=== PATIENT | female | born 1950 | race Caucasian/White ===

== ENCOUNTER 2021-05-03 06:13 | Observation (INO) ==
--- NOTE | 2021-04-06 17:43 | History & Physical Report ---
Date of Service April 06, 2021 date of surgery: 05/03/21 Procedure: Right Total Knee Arthroplasty Assessment & Plan (1) Arthritis of right knee: Risks and benefits of procedure discussed in detail today, patient would like to proceed with a Right total knee replacement at [facility] as scheduled. will obtain medical clearance from Dr Romero prior to surgery as well as obtain PATs at [facility]. Will resume her Plavix and ASA post op, f/u 2 weeks post op for routine post-operative care and x-ray, sooner if having any problems. will make arrangements for HHPT at the time of discharge. At this point in time, has failed conservative measures and would like to proceed with surgical intervention. she was originally scheduled to have this done last year but had to be postponed as she underwent cardiac cath and stent, she has since been seen and evaluated by cardiology and cleared to have her knee replacement. The risks and benefits have been discussed including, but not limited to, risk of infection, nerve injury, stiffness, loss of motion, failure to improve, etc. Reasonable outcomes and options of treatment were discussed. An explanation of appropriate alternatives to the procedure that may be advantageous were discussed and their risks and benefits, as well as the risks and benefits of not proceeding with treatment. I offered to answer any additional inquiries concerning the treatment involved. All the patient's questions were answered. The patient is agreeable, understanding of the treatment plan and alternatives, and wishes to proceed with the treatment plan. History of Present Illness Chief Complaint: Right knee pain Primary Care Provider: Jarred Romero Ms Degroot is a 70 year old female, presents for pre-op prior to a right total knee replacement at [facility]. She presents with pain and instability on the right side. She states that the symptoms have been chronic non-traumatic and states that the symptoms are moderate-severe. she describes the pain as sharp as aching. the symptoms are aggravated by ascending stairs, daily activities, driving, exercise, first steps while awake, kneeling, movement, repetitive activities, sleeping on the affected side, squatting, standing, walking and weight bearing. In addition to right knee pain the patient is also experiencing limping, nighttime awakening, pain, decreased mobility, difficulty bending, difficulty going to sleep, stiffness, tenderness and weakness. she has had prior visco injections, Supartz as well as cortisone without much relief. Allergies Allergy/AdvReac Type Severity Reaction Status Date / Time carvedilol [From Coreg] Allergy Mild cant Verified 04/05/21 16:16 remember fluorouracil Allergy Mild topical - Verified 04/05/21 16:16 cant remember metronidazole Allergy Mild cant Verified 04/05/21 16:16 remember moxifloxacin Allergy Mild cant Verified 04/05/21 16:16 remember doxycycline Allergy Unknown HEART Verified 04/05/21 16:13 PAUSES AND GET COLD erythromycin base Allergy Unknown HEART Verified 04/05/21 16:13 PAUSES AND GETS COLD Ageynbp-Hxd-Zdx Reductase Allergy Unknown MUSCLE Verified 04/05/21 16:13 Inhibitor ACHES, ELEVATED BP Home Medications Medication Instructions Recorded Confirmed Type cholecalciferol (vitamin D3) 125 mcg PO QAM 04/05/20 04/05/21 History [Vitamin D3] cyanocobalamin (vitamin B-12) 1,000 mcg PO QAM 04/05/20 04/05/21 History fluticasone propionate [Flonase 1 spray INTRANASAL DAILY PRN 04/05/20 04/05/21 History Allergy Relief] levothyroxine 88 mcg PO QAM 04/05/20 04/05/21 History multivitamin 1 tab PO QAM 04/05/20 04/05/21 History spironolactone [Aldactone] 25 mg PO BID 04/05/20 04/05/21 History aspirin 81 mg PO QAM 04/05/21 04/05/21 History atorvastatin 40 mg PO HS 04/05/21 04/05/21 History clopidogrel [Plavix] 75 mg PO QAM 04/05/21 04/05/21 History coenzyme Q10 [Co Q-10] 200 mg PO HS 04/05/21 04/05/21 History Past Med/Surg History Medical History Hypertension Hypothyroidism Morbid obesity Osteoarthritis Surgical History H/O parathyroidectomy History of bilateral tubal ligation History of cardiac cath 04/2020 stent placed [facility] arolod - dr santana History of cholecystectomy History of colonoscopy History of partial adrenalectomy LEFT SIDE-F/U DR SARAH ROCHE, for hyperaldosteronism and nodule History of tonsillectomy History of total knee replacement LEFT Nausea and vomiting after administration of anesthetic agent Family History Mother Family history of reaction to anesthesia PONV Daughter Family history of reaction to anesthesia PONV Daughter Family history of reaction to anesthesia PONV Grandmother (Maternal) Family history of diabetes mellitus Social History Smoking Status: Never smoker Second Hand Exposure: No; Do You Dip or Chew Tobacco: No; Tobacco Cessation Education Requested by Patient: No Hx Alcohol Use: Yes Alcohol type: wine Hx Substance Use: No Preferred Language: Senegalese Communication Ability: Effective Medical Aides Teacher Required: No Beliefs That Will Affect Care: None Current Living Situation: Spouse Other Information That Helps Us Care for You: No Feels Safe at Home: Yes Safety Concerns: Feels Safe At This Time Review of Systems Review of Systems: All systems reviewed & are unremarkable except as noted in HPI & below Constitutional: no fever, no chills and no sweats Respiratory: no cough and no dyspnea Cardiovascular: no chest pain, no dyspnea and no orthopnea Gastrointestinal: no abdominal pain, no nausea and no vomiting Musculoskeletal: as per Subjective / HPI Physical Exam Physical Exam: HT: 5ft 3in WT: 87.997kg Constitutional: WD/WN, vitals as above no acute distress Respiratory: normal respiratory effort, lungs clear to auscultation no respiratory distress, no labored breathing and does not use accessory muscles Cardiovascular: RRR, no murmur, no edema Gastrointestinal (Abdomen): normal bowel sounds, soft, nontender, no hepatosplenomegaly Musculoskeletal: Knee: + knee abnormal to inspection (Right knee: ), + effusion (+1 effusion), + limited ROM of knee (ROM 0/3/110), + knee ROM with crepitation, + joint line tenderness (medial joint line) and + Anna's sign positive; no deformity, no skin erythema, no ecchymosis, no valgus laxity, no varus laxity, anterior drawer test negative, Jessica's sign negative and pivot shift test negative Results & Data Results & Data ([facility]) Diagnostic Findings Right Knee X-ray March 2020 showing advanced degenerative changes to the right knee, narrowing of the medial compartment and patello-femoral joint with patellar spurring noted, findings showing joint space narrowing of the medial compartment and patello-femoral joint, osteophyte formation and subchondral sclerosis noted. overall varus alignment. no acute bony pathology noted.
--- NOTE | 2021-04-07 10:15 | PAT Medication Instructions ---
Medication Instructions Date of Service April 07, 2021 Home Medications cholecalciferol (vitamin D3) [Vitamin D3] 125 mcg PO QAM cyanocobalamin (vitamin B-12) 1,000 mcg PO QAM fluticasone propionate [Flonase Allergy Relief] 1 spray INTRANASAL DAILY PRN levothyroxine 88 mcg PO QAM multivitamin 1 tab PO QAM spironolactone [Aldactone] 25 mg PO BID aspirin 81 mg PO QAM atorvastatin 40 mg PO HS clopidogrel [Plavix] 75 mg PO QAM coenzyme Q10 [Co Q-10] 200 mg PO HS ASK your prescriber and surgeon clopidogrel [Plavix] 75 mg PO QAM Your [employer] has approved you to hold this medication for 5-7 days. For spinal anesthesia, this must be held for at least 7 days. Last dose will be 04/25/21. STOP taking 2 weeks before surgery coenzyme Q10 [Co Q-10] 200 mg PO HS DO NOT take the morning of surgery cholecalciferol (vitamin D3) [Vitamin D3] 125 mcg PO QAM cyanocobalamin (vitamin B-12) 1,000 mcg PO QAM multivitamin 1 tab PO QAM spironolactone [Aldactone] 25 mg PO BID Take morning of surgery With a small sip of water, OTHERWISE NOTHING TO EAT OR DRINK AFTER MIDNIGHT: fluticasone propionate [Flonase Allergy Relief] 1 spray INTRANASAL DAILY PRN (if needed) levothyroxine 88 mcg PO QAM aspirin 81 mg PO QAM Take evening before surgery fluticasone propionate [Flonase Allergy Relief] 1 spray INTRANASAL DAILY PRN (if needed) spironolactone [Aldactone] 25 mg PO BID atorvastatin 40 mg PO HS Other Notes If you have any questions please call us at [phone] or [phone] or [phone] or [phone]
--- NOTE | 2021-04-12 13:14 | Anesthesiology Consultation ---
Date of Service April 12, 2021 Assessment & Plan (1) Encounter for pre-operative examination: Chart Review Chart Review: Acceptable Risk for Surgery (pending preop Covid testing results ) and Patient seen in Pre Admission Testing Pt hesitant re: spinal anesthesia- educated on benefits/risks- pt will discuss with anesthesiologist DOS Per PAT appt on 04/12/21, patient denies any recent travel or large group activities. No known Covid positive contacts or Covid related symptoms. No known Covid infection in the past 90 days. Preop Covid testing scheduled 04/29/21= will await results. Educated on importance of self quarantining, social distancing and wearing mask in public both for the patient after Covid testing done First Covid vaccine 04/05/21 Patient seen by cardiology 03/15/2021 = patient seen for follow-up on coronary disease. Cardiac catheterization 04/30/2020 = distal LM 20%, proximal LAD 99%, mid RCA 30%PCI to proximal LADDES. (Done secondary to abnormal nuclear stress test on 04/20/20. CADstable. No anginal symptoms. Continue aspirin and Plavixdual antiplatelet therapy will be continued indefinitely as long as she continues to tolerate it given the proximal LAD stent. Continue statin. " She would like to proceed with the operation. At this point, it is reasonable to hold the clopidogrel for 5-7 days prior to the operation and then resume it as soon as possible after the operation. I would prefer that her aspirin not be held for the operation of possible given her proximal LAD stent. She is otherwise stable from a cardiac standpoint may proceed." (Did encourage patient to hold Plavix 7 days prior to surgery in order to receive spinal anesthesia; patient encouraged to continue baby aspirin perioperatively) Teaching & Discussion Pre-Anesthesia Teaching/Discussion Notes: Instructed NPO after midnight before surgery,except medications with 15 cc of water. Medication instructions provided according to the PAT guidelines. History Surgery Operation Date: 05/03/21 12:45 Proposed Procedures p Right Total Knee Arthroplasty - Chandan Joseph DO Height/Weight Height: 5 ft 3 in Weight: 91.6 kg Allergies Allergy/AdvReac Type Severity Reaction Status Date / Time carvedilol [From Coreg] Allergy Mild cant Verified 04/05/21 16:16 remember fluorouracil Allergy Mild topical - Verified 04/05/21 16:16 cant remember metronidazole Allergy Mild cant Verified 04/05/21 16:16 remember moxifloxacin Allergy Mild cant Verified 04/05/21 16:16 remember doxycycline Allergy Unknown BRADYCARDIA Verified 04/12/21 13:16 AND GET COLD erythromycin base Allergy Unknown BRADYCARDIA Verified 04/12/21 13:16 AND GETS COLD Lypvong-Qwz-Vbo Reductase Allergy Unknown MUSCLE Verified 04/05/21 16:13 Inhibitor ACHES, ELEVATED BP Medications Home Medications Medication Instructions Recorded Confirmed Last Taken cholecalciferol (vitamin D3) 125 mcg PO QAM 04/05/20 04/05/21 Unknown [Vitamin D3] cyanocobalamin (vitamin B-12) 1,000 mcg PO QAM 04/05/20 04/05/21 Unknown fluticasone propionate [Flonase 1 spray INTRANASAL DAILY PRN 04/05/20 04/05/21 Unknown Allergy Relief] levothyroxine 88 mcg PO QAM 04/05/20 04/05/21 Unknown multivitamin 1 tab PO QAM 04/05/20 04/05/21 Unknown spironolactone [Aldactone] 25 mg PO BID 04/05/20 04/05/21 Unknown aspirin 81 mg PO QAM 04/05/21 04/05/21 Unknown atorvastatin 40 mg PO HS 04/05/21 04/05/21 Unknown clopidogrel [Plavix] 75 mg PO QAM 04/05/21 04/05/21 Unknown coenzyme Q10 [Co Q-10] 200 mg PO HS 04/05/21 04/05/21 Unknown Past Medical History Medical History (Updated 04/14/21 @ 12:49 by Shelbie Quezada PA-C) CAD (coronary artery disease) 04/30/20- to proximal LAD Hyperaldosteronism History of- improved with adrenal gland removal Hyperparathyroidism S/p two parathyroid glands removal Hypertension Hypothyroidism Osteoarthritis Exercise / Class Metabolic Activity II 4-5 Yardwork/Stairs/Walk up hill (one flight of stairs - no chest pain or SOB ) Past Family History Family History Mother Family history of reaction to anesthesia PONV Daughter Family history of reaction to anesthesia PONV Daughter Family history of reaction to anesthesia PONV Grandmother (Maternal) Family history of diabetes mellitus Past Surgical History Surgical History H/O parathyroidectomy History of bilateral tubal ligation History of cardiac cath 04/2020 stent placed [facility] aroldo - dr santana History of cholecystectomy History of colonoscopy History of partial adrenalectomy LEFT SIDE-F/U DR SARAH ROCHE, for hyperaldosteronism and nodule History of tonsillectomy History of total knee replacement LEFT Nausea and vomiting after administration of anesthetic agent Past Anesthesia History No Hx of Anesthesia Complications (with exception PONV and slow to wake - no reintubation or ICU stay ) and No Family Hx of Anesthesia Complications (with exception to mother and daughter- slow to wake - no reintubation or ICU stay ) History of PONV History of PONV (relieved with IV anti nausea meds ) and Hx of Motion Sickness Social History Smoking Status: Never smoker Do You Dip or Chew Tobacco: No Hx Alcohol Use: Yes Alcohol type: wine alcohol intake frequency: a few times a month Hx Substance Use: No substance use type: does not use Review of Systems Patient denies chest pain, shortness of breath, dyspnea on exertion, reflux, cough, wheezing, palpitations. No hx of seizures, stroke, apnea/snoring. No hx of blood clots or blood transfusions Physical Exam Vital Signs VITALS BP 154/86 P 66 TEMP 97.5 SP02 97% RESP 16 Constitutional no acute distress ENMT Mouth: no TMJ clicking Thyromental Distance: > or= 3.5 Finger Breadths (3.5) Mallampati Class: II Permanent bridge to lower left teeth Neck + limited neck extension (mild ) Respiratory normal respiratory effort; no respiratory distress Auscultation: lungs clear to auscultation bilaterally; no wheezes Cardiovascular Rate/Rhythm: regular rate and regular rhythm Heart Sounds: no murmur Vessels: no carotid bruit Musculoskeletal Spine: + pain with cervical ROM (mild) Extremities: extremities normal to inspection Psychiatric Orientation: alert Lab Results Anesthesia Preop Results Results Anesthesia Widget: WBC 5.34 K/uL (4.8-10.8) 04/12/21 Hgb 13.9 g/dL (12.0-16.0) 04/12/21 Hct 41.8 % (37-47) 04/12/21 Plt 226 K/uL (130-400) 04/12/21 Na 137 mmol/L (136-145) 04/12/21 K 4.0 mmol/L (3.5-5.1) 04/12/21 Cl 104 mmol/L (98-107) 04/12/21 CO2 27 mmol/L (21-32) 04/12/21 BUN 18 mg/dl (7-18) 04/12/21 Creat 1.07 mg/dl (0.6-1.2) 04/12/21 Glucose Level 111 mg/dl (70-99) H 04/12/21 PT 10.5 Seconds (9.0-12.0) 04/12/21 PTT 26.3 Seconds (21.0-31.0) 04/12/21 INR 1.0 (0.9-1.1) 04/12/21 HA1c 5.5 % (4.5-5.6) 04/12/21 Urine Color Yellow 04/12/21 Urine Appearance Clear (Clear) 04/12/21 Urine pH 7.5 (4.5-7.5) 04/12/21 Urine Specific [place] 1.012 (1.000-1.030) 04/12/21 Urine Protein Negative (Negative) 04/12/21 Urine Glucose (UA) Negative (Negative) 04/12/21 Urine Ketones Negative (Negative) 04/12/21 Urine Blood Negative (Negative) 04/12/21 Urine Nitrite Negative (Negative) 04/12/21 Urine Bilirubin Negative (Negative) 04/12/21 Urine Urobilinogen Negative (Negative) 04/12/21 Urine Leukocyte Esterase Trace (Negative) H 04/12/21 Urine WBC (Auto) 1-5 /hpf (0-5) 04/12/21 Urine RBC (Auto) 0-4 /hpf (0-4) 04/12/21 Urine Hyaline Casts (Auto) 0 /lpf (0-5) 04/12/21 Urine Epithelial Cells (Auto) 5-10 /lpf (0-5) H 04/12/21 Urine Bacteria (Auto) Negative (Negative) 04/12/21 Blood Type A Negative 04/12/21 Antibody Screen NEGATIVE 04/12/21 Testing Electrocardiogram Date: 04/12/21 Findings: + SB @ (59bpm) Otherwise normal EKG per cardio. When compared to EKG from April 12, 2020no significant changes found per cardio Chest X-Ray Date: 04/12/21 Findings: + NAD There is minor blunting the right posterior costophrenic angle. Echocardiogram Date: 05/01/20 EF: 60-65% LV Function: normal RWMA: + none Other Findings: + diastolic dysfunction (Grade 1); no LVH Stress Test Date: 04/20/20 Myocardial perfusion imaging: Possible prior nontransmural mid to apical anterior wall [place] with very minimal nina-infarct ischemia. Findings could also potentially be secondary to breast attenuation artifact. Calculated LVEF 57%Possible associated mild hypokinesis of the segments. EKG during pharmacologic stress test demonstrates no ischemic ST abnormalities. (Had subsequent cardiac cath with GARRETT to LAD) Cardiac Catheterization Date: 04/30/20 LM = distal 20% narrowing LAD = proximal 99% stenosisotherwise mild luminal irregularities. Circumflex = mild luminal irregularities RCA = mid 30% stenosisotherwise mild luminal irregularities. Impressions = PTCA and GARRETT to LAD. Recommendations: Knee operation will need to be postponed for at least 6 months as her dual antiplatelet therapy (aspirin and Plavix) should not be interrupted before then.
[~2021-05-03 06:13] MED LIST: ACETAMINOPHEN 500 MG TAB PO SCH; CeleBREX 200 MG CAP PO SCH; FAMOTIDINE 20 MG TAB PO SCH; GABAPENTIN 300 MG CAP PO SCH; LR 500ML BOLUS, THEN 15ML/HR IV SCH; METOCLOPRAMIDE HCL 10 MG TABLET PO SCH; ROPIVACAINE 0.5% HCL/PF 150 MG, BUPIVACAINE 0.75% MPF 20 ML, EPINEPHrine 30MG/30ML (OR ... INSTIL SCH; TRANEXAMIC ACID 1,000 MG **IV Intra-op IV SCH; TRANEXAMIC ACID 1,000 MG **IV Pre-op IV SCH; ceFAZolin 2000MG 2,000 MG/15 ML SYR IV SCH; oxyCODONE HCL 10 MG TABCR (OxyCONTIN) PO SCH
[2021-05-03] MEDS ORDERED: EPINEPHrine INJ 1 MG/ML AMP ONE (06:40)
[2021-05-03] MEDS ORDERED: BUPIVACAINE 0.5 % 5 MG/1 ML PF 10ML VIAL ONE (06:40)
[2021-05-03] MEDS ORDERED: BUPIVACAINE 0.25% 30 ML VIAL ONE (06:40)
--- NOTE | 2021-05-03 07:27 | History & Physical Bridge Note ---
Date of Service May 03, 2021 History & Physical Bridge Note I have examined the patient, reviewed the History & Physical and in the interval since the performance of the History & Physical I have noted the following changes of clinical significance: no changes noted
[2021-05-03] MEDS ORDERED: fentaNYL citrate 100 MCG/2 ML VIAL ONE (09:43)
[2021-05-03] MEDS ORDERED: MIDAZOLAM HCL 1 MG/ML 2ML VIAL ONE (09:43)
[2021-05-03] MEDS ORDERED: DEXAMETHASONE SOD INJ 4 MG/ML VIAL ONE (09:43)
[2021-05-03] MEDS ORDERED: PROPOFOL IV EMULSION 10 MG/ML 20 ML VIAL IV ONE (09:43)
[2021-05-03] MEDS ORDERED: fentaNYL citrate 100 MCG/2 ML VIAL IV PRN (10:39)
[2021-05-03] MEDS ORDERED: ONDANSETRON INJ 2 MG/ML 2 ML VIAL IV PRN ×2 (10:39→14:38)
[2021-05-03] MEDS ORDERED: ePHEDrine sulfate 50 MG/ML AMP IV PRN (10:39)
[2021-05-03] MEDS ORDERED: PROMETHAZINE HCL 12.5 MG in SODIUM CHLORIDE 0.9% 50 ML IV PRN (10:39)
[2021-05-03] MEDS ORDERED: ATROPINE SULFATE 0.1 MG/ML 10ML SYR IV PRN (10:39)
[2021-05-03] MEDS ORDERED: HYDROmorphone INJ 2 MG/ML SYR/VIAL IV PRN (10:39)
[2021-05-03] MEDS ORDERED: ORTHO JOINT ANESTHETIC ONE (10:50)
--- NOTE | 2021-05-03 12:08 | Operative Report ---
Post Operative Report Pre & Post Diagnosis Operation Date: 05/03/21 09:45 Pre-Op Diagnosis: Osteoarthritis, Right Knee Post-Op Diagnosis: Osteoarthritis, Right Knee I identified the patient and participated in the time-out.: Yes Procedure Operation Date: 05/03/21 09:45 Actual Procedures p Right Total Knee Arthroplasty utilizing [employer] jourmayer 2 patient matched total knee arthroplasty size 4 femur 3 tibia 13 polytwenty 9 oval patella- Chandan Joseph DO Surgeon Chandan Joseph DO Ultrasound Supervisor Praneeth BARBOSA Estimated Blood Loss 5 Findings Consistent with Post-Op Diagnosis Patient presents with severe end-stage DJD right knee varus alignment subchondral sclerosis marginal osteophytes eburnated [id number] large effusion right knee Specimens Bone and cartilage Drains Medium bore Hemovac Anesthesia Type MAC Spinal Regional Disposition Accompanied Patient To Recovery: No Disposition: Recovery Room Indications Patient presents with severe end-stage DJD right knee no response to conservative management patient failed attempted conservative management clinic physical therapy anti-inflammatories relative rest activity modification Visco supplementation the above intraoperative findings were noted Description of Procedure After proper prepping and draping of the Right lower extremity anterior midline incision was made over the region of the extensor extensor mechanism after meticulous hemostasis was obtained and maintained in subcutaneous tissues a medial parapatellar incision was made The patella was subluxed lateralward the medial lateral gutter were cleaned from any hypertrophic synovitis and scar tissue of the distal femoral block was placed and the distal femoral osteotomy cut was made subsequently the chamfers anterior and posterior osteotomy cuts were made utilizing the 4-in-1 block the tibia was subsequently subluxed anteriorward medial and ateral meniscal remnants were excised in their entirety remnants of the anterior and posterior cruciate ligaments were excised in their entirety excellent exposure of the proximal tibia was obtained the tibial osteotomy guide was placed on the proximal tibial osteotomy cut was made once again the knee was irrigated with copious amounts of sterile saline solution the patella was subsequently everted lateralward thickened scar tissue around the patella was removed the patella was subsequently cut utilizing a freehand technique and was drilled prepared for final preparation and placement of patella socially flexion-extension gaps were checked and the equal and symmetric trials were placed to the appropriate femoral and tibial trials with poly-spacer being placed for equal flexion and extension gaps and full range of motion including extension to 0 and flexion to 140 the trial components after having been taken to recovery range of motion was subsequently removed meticulous hemostasis was obtained and maintained subsequently a knee block injection of joint cocktail including ropivacaine 0.5% 150 mg. Bupivacaine 0.5% epinephrine 1-200,030 mL's toradol 30 mg dexamethasone 4 mg ketamine 10 mg clonidine 100 micrograms normal saline solution 30 mg was infiltrated into the soft tissues of the posterior knee medial lateral gutters and periosteal synovium special attention was paid to protect neurovascular structures at all times subsequently trial components having been removed the knee was irrigated with sterile saline solution. debris was removed the proximal tibia was subsequently prepared and was made ready for the placement of the tibial component tibial component was also cemented and tamped into position the femoral component was subsequently placed and cemented in the position the patellar component was subsequently cemented in position because hemostasis once again obtained and maintained wound having been thoroughly irrigated with debridement and debridement lavage was performed as well as a medial parapatellar incision closed with #1 Vicryl in interrupted fashion subcutaneous was closed with #2 Vicryl skin was closed with skin clips. PA-C was necessary for prepping and drapping as well as wound closure of deep fascia Sub cutaneous tissue and skin and was necessary for the case. A sterile compressive dressing was placed patient was taken to recovery in stable condition of report dictated by Jake I attest to the content of the Intraoperative Record and any orders documented therein. Any exceptions are noted below. I attest to the content of the Intraoperative Record and any orders documented therein. Any exceptions are noted below.
[2021-05-03] MEDS ORDERED: LIDOCAINE 2% 2 ML VIAL/AMP(20MG/ML) INFIL ONE (12:18)
[2021-05-03] MEDS ORDERED: ONDANSETRON INJ 2 MG/ML 2 ML VIAL ONE (12:24)
--- NOTE | 2021-05-03 13:50 | XRay Report ---
XR knee RT 1 or 2V routine CLINICAL HISTORY: Surgical Post Op COMPARISON: None. DISCUSSION: Prosthetic right knee joint is seen. Subcutaneous emphysema and surgical drainage are seen. Mild diffuse soft tissue edema. IMPRESSION: Postoperative changes as detailed above. ACT 112: Negative or not required by law. The above report was generated using voice recognition software. It may contain grammatical, syntax o r spelling errors. Electronically signed by: Mercy Ramon DO 05/03/2021 1:49 PM
--- NOTE | 2021-05-03 14:02 | Anesthesiology Progress Note ---
Date of Service May 03, 2021 Anesthesia Post Procedure Vital Signs Vital Signs: Temp Pulse Pulse Resp BP Pulse Ox 05/03/21 13:55 49 L 18 148/58 H 99 05/03/21 13:45 45 L 15 132/73 100 05/03/21 13:35 48 L 15 160/68 H 98 05/03/21 13:25 49 L 17 147/71 H 96 05/03/21 13:15 53 L 17 128/68 99 05/03/21 13:05 56 L 15 139/63 100 05/03/21 12:56 36.5 C 66 20 111/90 99 05/03/21 07:39 36.8 C 55 L 20 172/74 H 100 Transfer of Care Handoff Completed per policy Notes Mental Status: alert / awake / arousable and participated in evaluation Patient Amnestic to Procedure: Yes Nausea / Vomiting: adequately controlled Pain: adequately controlled Airway Patency, RR, SpO2: stable & adequate BP & HR: stable & adequate Hydration State: stable & adequate Anesthetic Complications: no major complications apparent and Pt Satisfied with anesthetic care
[2021-05-03] MEDS ORDERED: HYDROmorphone INJ 0.5 MG/0.5 ML SYR IV PRN (14:38)
[2021-05-03] MEDS ORDERED: NALOXONE HCL 0.4 MG/1 ML VIAL/CARP IV PRN (14:38)
[2021-05-03] MEDS ORDERED: bisacodyL 10 MG SUPP PR PRN (14:38)
[2021-05-03] MEDS ORDERED: MAGNESIUM HYDROXIDE SUSP 30 ML UDC PO PRN (14:38)
[2021-05-03] MEDS ORDERED: FLUTICASONE PROPIONATE NA SPR 16 GM BTL PRN (15:00)
[2021-05-03] MEDS: ACETAMINOPHEN 500 MG TAB PO SCH ×2 (15:40→20:38)
[2021-05-03] MEDS: SODIUM CHLORIDE 0.9% 1000ML 1,000 ML IV SCH (15:42)
[2021-05-03] MEDS: FERROUS GLUCONATE 324 MG TAB PO SCH (18:03)
[2021-05-03] MEDS: ceFAZolin 2000MG 2,000 MG/15 ML SYR IV SCH (18:04)
[2021-05-03] MEDS: ASPIRIN 81 MG ECTAB PO SCH (20:38)
[2021-05-03] MEDS: DOCUSATE SODIUM 100 MG CAP PO SCH (20:38)
[2021-05-03] MEDS ORDERED: SENNA 8.6 MG TAB PO SCH (21:00)
[2021-05-03] MEDS ORDERED: ATORVASTATIN 40 MG TAB PO SCH (21:00)
[2021-05-03] MEDS ORDERED: NON-FORMULARY MEDICATION (Coenzyme Q10 [Co Q-10] 200 mg Capsule) PO SCH (21:00)
[2021-05-04] MEDS: ceFAZolin 2000MG 2,000 MG/15 ML SYR IV SCH (00:46)
[2021-05-04] MEDS: SODIUM CHLORIDE 0.9% 1000ML 1,000 ML IV SCH (00:46)
[2021-05-04] MEDS: ACETAMINOPHEN 500 MG TAB PO SCH ×2 (05:57→13:44)
[2021-05-04] MEDS ORDERED: LEVOTHYROXINE SODIUM 88 MCG TABLET PO SCH (06:30)
[2021-05-04 08:05] LABS: Hemoglobin 11.4 g/dL (12.0-16.0); Mean Corpuscular Hemoglobin 29.9 pg (25-34); Mean Corpuscular Hgb Conc 32.6 g/dL (32-36); Mean Corpuscular Volume 91.9 fL (80-100); Mean Platelet Volume 10.4 fL (7.4-10.4); Platelet Count 172 K/uL (130-400); RDW Coefficient of Variation 13.6 % (11.5-14.5); RDW Standard Deviation 45.5 fL (36.4-46.3); Red Blood Count 3.81 M/uL (4.2-5.4); White Blood Count 11.05 K/uL (4.8-10.8)
[2021-05-04 08:32] LABS: Calcium 8.6 mg/dl (8.5-10.1); Creatinine Clr Calc Pharmacy 67.2 ml/min; Est GFR (African American) 80.5 ml/min; Est GFR (Non-African American) 69.4 ml/min; Potassium 4.1 mmol/L (3.5-5.1)
[2021-05-04] MEDS ORDERED: CHOLECALCIFEROL 1,000 UNITS 25 MCG TAB PO SCH (09:00)
[2021-05-04] MEDS ORDERED: MULTIVITAMIN TAB PO SCH (09:00)
[2021-05-04] MEDS ORDERED: CLOPIDOGREL BISULFATE 75 MG TAB PO SCH (09:00)
[2021-05-04] MEDS ORDERED: SPIRONOLACTONE 25 MG TAB PO SCH (09:00)
[2021-05-04] MEDS ORDERED: CYANOCOBALAMIN 500 MCG TABLET (VITAMIN B-12) PO SCH (09:00)
[2021-05-04] MEDS: oxyCODONE HCL IR 5 MG TAB (IMMEDIATE RELEASE) PO PRN ×2 (09:36→13:44)
[2021-05-04] MEDS: DOCUSATE SODIUM 100 MG CAP PO SCH (09:37)
[2021-05-04] MEDS: ASPIRIN 81 MG ECTAB PO SCH (09:37)
[2021-05-04] MEDS: FERROUS GLUCONATE 324 MG TAB PO SCH (09:37)
--- NOTE | 2021-05-04 09:39 | Orthopedic Progress Note ---
Date of Service May 04, 2021 Assessment & Plan (1) History of total right knee replacement: Plan: POD #1 s/p Right TKA pt/ot dvt proph with JARRED/SCD/ASA plan for d/c home with hhpt Admission and Anticipated Discharge Date Admission Date: May 03, 2021 Subjective POD #1 s/p Right TKA Review of Systems Constitutional: no fever, no chills and no sweats Respiratory: no cough and no dyspnea Cardiovascular: no chest pain and no dyspnea Gastrointestinal: no abdominal pain, no nausea and no vomiting Physical Exam Physical Exam: Vital Signs Temp Pulse Pulse Resp BP Pulse Ox 05/04/21 04:11 36.5 C 44 L 16 146/76 H 95 05/03/21 21:58 36.5 C 54 L 16 113/67 93 05/03/21 19:30 36.4 C L 51 L 17 124/73 97 05/03/21 17:57 36.8 C 60 17 130/75 91 05/03/21 16:16 36.4 C L 43 L 16 127/69 100 05/03/21 15:17 36.4 C L 46 L 18 129/75 98 05/03/21 14:55 36.7 C 18 130/74 98 05/03/21 14:25 36.5 C 49 L 15 152/78 H 97 05/03/21 14:10 36.1 C L 47 L 14 142/57 H 95 05/03/21 13:55 49 L 18 148/58 H 99 05/03/21 13:45 45 L 15 132/73 100 05/03/21 13:35 48 L 15 160/68 H 98 05/03/21 13:25 49 L 17 147/71 H 96 05/03/21 13:15 53 L 17 128/68 99 05/03/21 13:05 56 L 15 139/63 100 05/03/21 12:56 36.5 C 66 20 111/90 99 Intake and Output 05/03/21 05/04/21 05/04/21 22:59 06:59 14:59 Intake Total 1576.667 / 4827.16 7 Output Total 1100 / 2125 1000 / 2125 Balance -1100 / 2702.167 576.667 / 2702.167 Intake: IV 1426.667 / 1677.16 7 Sodium Chlorid e 0.9% 1000ML 1, 1426.667 / 1426.66 7 000 ml @ 100 m ls/hr IV .Q10H [facility] Rx#:[id number] Oral 150 / 1550 Output: Urine 1100 / 2000 900 / 2000 Drain Output 100 / 120 Right Knee Hem ovac 100 / 120 Constitutional: WD/WN, vitals as above Musculoskeletal: Right Leg: NVDI, calf SNT, negative efren sign. DP palpable, able to wiggle toes/ankle movement without difficulty. dressing clean dry and intact. Results & Data ([facility]) Vital Signs (Past 12 Hours) Vital Signs Temp Pulse Resp BP Pulse Ox 05/04/21 04:11 36.5 C 44 L 16 146/76 H 95 05/03/21 21:58 36.5 C 54 L 16 113/67 93 Laboratory Results Laboratory Results WBC 11.05 K/uL (4.8-10.8) H 05/04/21 07:46 RBC 3.81 M/uL (4.2-5.4) L 05/04/21 07:46 Hgb 11.4 g/dL (12.0-16.0) L 05/04/21 07:46 Hct 35.0 % (37-47) L 05/04/21 07:46 MCV 91.9 fL (80-100) 05/04/21 07:46 MCH 29.9 pg (25-34) 05/04/21 07:46 MCHC 32.6 g/dL (32-36) 05/04/21 07:46 RDW Std Deviation 45.5 fL (36.4-46.3) 05/04/21 07:46 RDW Coeff of Mann 13.6 % (11.5-14.5) 05/04/21 07:46 Plt Count 172 K/uL (130-400) 05/04/21 07:46 MPV 10.4 fL (7.4-10.4) 05/04/21 07:46 Sodium 140 mmol/L (136-145) 05/04/21 07:46 Potassium 4.1 mmol/L (3.5-5.1) 05/04/21 07:46 Chloride 109 mmol/L (98-107) H 05/04/21 07:46 Carbon Dioxide 26 mmol/L (21-32) 05/04/21 07:46 Anion Gap 5.0 (3-11) 05/04/21 07:46 BUN 15 mg/dl (7-18) 05/04/21 07:46 Creatinine 0.85 mg/dl (0.6-1.2) 05/04/21 07:46 Est Cr Clr Drug Dosing 67.2 ml/min 05/04/21 07:46 Est GFR ( Amer) 80.5 ml/min 05/04/21 07:46 Est GFR (Non-Af Amer) 69.4 ml/min 05/04/21 07:46 BUN/Creatinine Ratio 18.0 (10-20) 05/04/21 07:46 Glucose 111 mg/dl (70-99) H 05/04/21 07:46 Calcium 8.6 mg/dl (8.5-10.1) 05/04/21 07:46 COVID-19 Eval Order Covid[facility] 05/03/21 07:18 SARS-CoV-2, RNA, NAAT NEGATIVE (NEGATIVE) 05/03/21 07:18 Impressions Knee X-Ray 05/03/21 13:01 XR knee RT 1 or 2V routine CLINICAL HISTORY: Surgical Post Op COMPARISON: None. DISCUSSION: Prosthetic right knee joint is seen. Subcutaneous emphysema and surgical drainage are seen. Mild diffuse soft tissue edema. IMPRESSION: Postoperative changes as detailed above. ACT 112: Negative or not required by law. The above report was generated using voice recognition software. It may contain grammatical, syntax or spelling errors. Electronically signed by: Mercy Ramon DO 05/03/2021 1:49 PM
--- NOTE | 2021-05-05 12:14 | Discharge Summary ---
Date of Service May 05, 2021 Admission HPI Per Admitting Provider Ms Degroot is a 70 year old female, presents for pre-op prior to a right total knee replacement at [facility]. She presents with pain and instability on the right side. She states that the symptoms have been chronic non-traumatic and states that the symptoms are moderate-severe. she describes the pain as sharp as aching. the symptoms are aggravated by ascending stairs, daily activities, driving, exercise, first steps while awake, kneeling, movement, repetitive activities, sleeping on the affected side, squatting, standing, walking and weight bearing. In addition to right knee pain the patient is also experiencing limping, nighttime awakening, pain, decreased mobility, difficulty bending, difficulty going to sleep, stiffness, tenderness and weakness. she has had prior visco injections, Supartz as well as cortisone without much relief. Admission Exam Per Admitting Provider Physical Exam: HT: 5ft 3in WT: 87.997kg Constitutional: WD/WN, vitals as above no acute distress Respiratory: normal respiratory effort, lungs clear to auscultation no respiratory distress, no labored breathing and does not use accessory muscles Cardiovascular: RRR, no murmur, no edema Gastrointestinal (Abdomen): normal bowel sounds, soft, nontender, no hepatosplenomegaly Musculoskeletal: Knee: + knee abnormal to inspection (Right knee: ), + effu jaxson (+1 effusion), + limited ROM of knee (ROM 0/3/110), + knee ROM with crepitation, + joint line tenderness (medial joint line) and + Anna's sign positive; no deformity, no skin erythema, no ecchymosis, no valgus laxity, no varus laxity, anterior drawer test negative, Jessica's sign negative and pivot shift test negative Principal Diagnosis Right knee osteoarthritis Discharge Data Allergies Allergy/AdvReac Type Severity Reaction Status Date / Time carvedilol [From Coreg] Allergy Mild cant Verified 04/05/21 16:16 remember fluorouracil Allergy Mild topical - Verified 04/05/21 16:16 cant remember metronidazole Allergy Mild cant Verified 04/05/21 16:16 remember moxifloxacin Allergy Mild cant Verified 04/05/21 16:16 remember doxycycline Allergy Unknown BRADYCARDIA Verified 04/12/21 13:16 AND GET COLD erythromycin base Allergy Unknown BRADYCARDIA Verified 04/12/21 13:16 AND GETS COLD [id number] Reductase Allergy Unknown MUSCLE Verified 04/05/21 16:13 Inhibitor ACHES, ELEVATED BP Procedures Performed Operation Date: 05/03/21 09:45 Actual Procedures p Right Total Knee Arthroplasty - Chandan Joseph DO Ordered Studies 05/03/21 05:00 US - OR guided needle placemen Routine Hospital Course (1) Arthritis of right knee: Date of Service May 04, 2021 Assessment & Plan (1) History of total right knee replacement: Plan: POD #1 s/p Right TKA pt/ot dvt proph with JARRED/SCD/ASA plan for d/c home with hhpt Admission and Anticipated Discharge Date Admission Date: May 03, 2021 Subjective POD #1 s/p Right TKA Review of Systems Constitutional: no fever, no chills and no sweats Respiratory: no cough and no dyspnea Cardiovascular: no chest pain and no dyspnea Gastrointestinal: no abdominal pain, no nausea and no vomiting Physical Exam Physical Exam: Vital Signs Temp Pulse Pulse Resp BP Pulse Ox 05/04/21 04:11 36.5 C 44 L 16 146/76 H 95 05/03/21 21:58 36.5 C 54 L 16 113/67 93 05/03/21 19:30 36.4 C L 51 L 17 124/73 97 05/03/21 17:57 36.8 C 60 17 130/75 91 05/03/21 16:16 36.4 C L 43 L 16 127/69 100 05/03/21 15:17 36.4 C L 46 L 18 129/75 98 05/03/21 14:55 36.7 C 18 130/74 98 05/03/21 14:25 36.5 C 49 L 15 152/78 H 97 05/03/21 14:10 36.1 C L 47 L 14 142/57 H 95 05/03/21 13:55 49 L 18 148/58 H 99 05/03/21 13:45 45 L 15 132/73 100 05/03/21 13:35 48 L 15 160/68 H 98 05/03/21 13:25 49 L 17 147/71 H 96 05/03/21 13:15 53 L 17 128/68 99 05/03/21 13:05 56 L 15 139/63 100 05/03/21 12:56 36.5 C 66 20 111/90 99 Intake and Output 05/03/21 05/04/21 05/04/21 22:59 06:59 14:59 Intake Total 1576.667 / 4827.16 7 Output Total 1099 / 2124 1000 / 2124 Balance -1100 / 2702.167 576.667 / 2702.167 Intake: IV 1426.667 / 1677.16 7 Sodium Chlorid e 0.9% 1000ML 1, 1426.667 / 1426.66 7 000 ml @ 100 m ls/hr IV .Q10H [facility] Rx#:[id number] Oral 150 / 1550 Output: Urine 1100 / 2000 900 / 2000 Drain Output 100 / 120 Right Knee Hem ovac 100 / 120 Constitutional: WD/WN, vitals as above Musculoskeletal: Right Leg: NVDI, calf SNT, negative efren sign. DP palpable, able to wiggle toes/ankle movement without difficulty. dressing clean dry and intact. Results & Data ([facility]) Vital Signs (Past 12 Hours) Vital Signs Temp Pulse Resp BP Pulse Ox 05/04/21 04:11 36.5 C 44 L 16 146/76 H 95 05/03/21 21:58 36.5 C 54 L 16 113/67 93 Laboratory Results Laboratory Results WBC 11.05 K/uL (4.8-10.8) H 05/04/21 07:46 RBC 3.81 M/uL (4.2-5.4) L 05/04/21 07:46 Hgb 11.4 g/dL (12.0-16.0) L 05/04/21 07:46 Hct 35.0 % (37-47) L 05/04/21 07:46 MCV 91.9 fL (80-100) 05/04/21 07:46 MCH 29.9 pg (25-34) 05/04/21 07:46 MCHC 32.6 g/dL (32-36) 05/04/21 07:46 RDW Std Deviation 45.5 fL (36.4-46.3) 05/04/21 07:46 RDW Coeff of Mann 13.6 % (11.5-14.5) 05/04/21 07:46 Plt Count 172 K/uL (130-400) 05/04/21 07:46 MPV 10.4 fL (7.4-10.4) 05/04/21 07:46 Sodium 140 mmol/L (136-145) 05/04/21 07:46 Potassium 4.1 mmol/L (3.5-5.1) 05/04/21 07:46 Chloride 109 mmol/L (98-107) H 05/04/21 07:46 Carbon Dioxide 26 mmol/L (21-32) 05/04/21 07:46 Anion Gap 5.0 (3-11) 05/04/21 07:46 BUN 15 mg/dl (7-18) 05/04/21 07:46 Creatinine 0.85 mg/dl (0.6-1.2) 05/04/21 07:46 Total Time Total Time Spent Total Time Spent (In Minutes): 5 Discharge Plan Discharge Items Patient Disposition: Home - Home Health Services Reason For Visit: Osteoarthritis, Right Knee Discharge Diagnosis: right total knee arthroplasty Activity: As commented below Weightbearing Comment: WBAT with walker Non-emergency contact: Surgeon Call non-emergency contact if: you have any medication questions, your temperature is above 101, your wound has increased redness, your wound has increased drainage and your wound pain has increased Follow-up/Referrals: Jarred Romero [Primary Care Provider] - Diet: Regular Addtl Attending Provider Instructions: ACTIVITY RECOMMENDATIONS: SELF CARE INSTRUCTIONS AFTER TOTAL KNEE REPLACEMENT A. You may need to continue a physical therapy program after discharge from the hospital. There are several options available to you. Your doctor will assist you in selecting the best one for you. 1. An out-patient facility 2 to 3 times a week for therapy or home therapy. 2. Continue working on all exercises taught to you in the hospital. Your goals should be to increase bending of your knee to 90 degrees and beyond and to fully straighten your knee. B. You may progress at your own pace from walking with a walker or crutches to a cane; then to no assistive devices. C. Make walking a part of your daily routine. Be up as much as comfortable with rest periods throughout the day. Rest with leg elevation is very important. Use the ice wrap frequently for the first 3-4 weeks. D. There are no restrictions on activities. You may ride in a car, shop, participate in firebrick layer and all social activities. E. Wear the long elastic stockings (JARRED hose) 20 hours a day for 2 weeks after surgery. They can be removed several times a day for laundering and for a bath. F. You may shower, no tub baths until cleared by your doctor. SPECIAL CARE INSTRUCTIONS: VERY IMPORTANT TO READ AND REVIEW A. There are a few signs you need to watch for after you are home. Call [facility] if you notice any of the followin. Increased severe knee pain. Some pain is expected especially when you exercise. 2. Increased swelling in your leg or knee; pain or swelling of the calf muscle in either lower leg. 3. Any fluid drainage from the incision. 4. Shortness of breath or chest pain. B. Please call [facility] at if you have any concerns or questions about your operation or recovery. The doctor or his nurse will return your call promptly. C. You must take antibiotics before dental work, bladder, bowel or other surgery. Your doctor will provide you with a permanent care to carry describing this precaution. IMPORTANT: * REMEMBER TO TAKE ASPIRIN, 81 MG, TWICE DAILY FOR 4 WEEKS UNLESS OTHERWISE DIRECTED. THIS IS YOUR BLOOD THINNER. * HIGH RISK PATIENTS MAY BE PRESCRIBED A STRONGER BLOOD THINNER. THIS WILL BE PROVIDED AT DISCHARGE. * CALL IF INCREASED PAIN, REDNESS, DRAINAGE OR FEVER GREATER THAT 101. * WEAR JARRED HOSE 20 HOURS PER DAY FOR 2 WEEKS. * DERMABOND Prineo- This is a mesh tape dressing that is covered with glue. It should remain in place until the incision is properly healed, usually 10-14 days. This dressing is designed to naturally slough off. You may trim the excess mesh tape as it peels off. Incision may be briefly wet in a shower. Dry immediately by blotting with a clean, dry towel. Do not bath or swim until instructed by your doctor. Do not scratch, rub, or pick at the dressing. Do not apply any topical ointments or lotions until dressing is completely removed and/or instructed by your doctor. There may be a small piece of suture material at one end of your incision. Do not pull or trim this. If it is bothersome or catching on clothing, you may cover it with a band-aid. IF INCISION IS LEAKING THROUGH DRESSING, CALL THE OFFICE . FOLLOW UP VISIT: If appointment is not already scheduled: Please call [facility] to make a follow-up appointment for 2 weeks after your surgery at . Pending Studies at Discharge: No Stand-Alone Forms: [facility], Smoking Cessation Medications and DC Order Prescriptions: New aspirin 81 mg Tablet,Delayed Release (Dr/Ec) 81 mg PO BID 30 Days Qty: 60 RF: 0 acetaminophen [Tylenol Extra Strength] 500 mg Tablet 1,000 mg PO Q8 21 Days Qty: 126 RF: 0 oxycodone 5 mg Tablet 5 - 10 mg PO Q6H PRN (Reason: pain) Qty: 30 RF: 0 docusate sodium 100 mg Capsule 100 mg PO BID 10 Days Qty: 20 RF: 0 cefadroxil 500 mg capsule 500 mg PO BID 14 Days Qty: 28 RF: 0 Continued spironolactone [Aldactone] 25 mg Tablet 25 mg PO BID RF: 0 levothyroxine 88 mcg Tablet 88 mcg PO QAM RF: 0 cholecalciferol (vitamin D3) [Vitamin D3] 125 mcg (5,000 unit) Tablet 125 mcg PO QAM RF: 0 multivitamin Tablet 1 tab PO QAM RF: 0 cyanocobalamin (vitamin B-12) 1,000 mcg Capsule 1,000 mcg PO QAM RF: 0 fluticasone propionate [Flonase Allergy Relief] 50 mcg/actuation [place],Suspension 1 spray INTRANASAL DAILY PRN (Reason: Allergy Symptoms) RF: 0 atorvastatin 40 mg Tablet 40 mg PO HS RF: 0 clopidogrel [Plavix] 75 mg Tablet 75 mg PO QAM RF: 0 Discontinued aspirin 81 mg Tablet 81 mg PO QAM RF: 0 coenzyme Q10 [Co Q-10] 200 mg Capsule 200 mg PO HS RF: 0 Discharge Orders: Discharge Order (Routine); Ordered 05/04/21 Ordered By: Blaise Brooks Admission Data Admit Date/Time: 05/03/21 13:01 Attending Provider: Chandan Joseph Admit Provider: Chandan Joseph Primary Care Provider: Jarred Romero Other Interventions: Discharge Summary Assessment (RN) Last Done: 05/04/21 11:00
== END 2021-05-04 13:50 | disposition home health service (06) ==
LOC: 3E 06:13 → ASU 06:13